=== PATIENT | female | born 2000 | race Caucasian/White ===

== ENCOUNTER 2018-09-17 14:48 | Emergency (ER) | payer BC, OTHER ==
[2018-09-17] MEDS ORDERED: IPRATROPIUM-ALBUTEROL 3 ML NEB INHALATION STA (15:27)
[2018-09-17 15:52] VITALS: RESP 20
[2018-09-17 16:44] LABS: Amorphous Sediment,Urine Rare /hpf; Appearance,Urine Clear (Clear); Bilirubin,Urine Negative (Negative); Blood,Urine Negative (Negative); Color,Urine Light Yellow; Glucose,Urine (UA) Negative (Negative); Ketones,Urine Negative (Negative); Leukocyte Esterase,Urine Small (Negative); Mucus,Urine Rare /hpf; Nitrite,Urine Negative (Negative); Protein,Urine Negative (Negative); RBC,Urine 1 /hpf (0-5); Squamous Epithelial Cell,Urine 6 /hpf (0-4); Urobilinogen,Urine <2.0 mg/dL (<2.0)
--- NOTE | 2018-09-17 16:52 | ED ---
General Adult HPI - General Chief complaint: Upper Respiratory Infection Stated complaint: Sob-111/2 wks Time Seen by Provider: 09/17/18 15:06 Source: patient, RN notes reviewed, old records reviewed Mode of arrival: ambulatory Limitations: no limitations - History of Present Illness Initial comments: 18-year-old female patient 11 weeks 2 days gestation dated by ultrasound and LMP. With a past medical history of asthma presents to ED with 3 days of asthma exacerbation. Pt reports that she has had a dry nonproductive cough and while coughing has some shortness of breath that resolves with albuterol. Patient states that this feels similar to asthma she has had in the past. Patient denies any chest pain. Since that she is not short of breath at baseline, only when coughing. Patient states that at time she has coughed and made herself gag, heart rate denies any nausea at baseline. Patient denies any abdominal pain or vaginal bleeding. Patient denies other complaints. Systemic: Pt denies fatigue, myalgia, fever/chills, rash. Pt denies weakness, night sweats, weight loss. Neuro: Pt denies headache, visual disturbances, syncope or pre-syncope. HEENT: Pt denies ocular discharge or irritation, otalgia, rhinorrhea, pharyngitis or notable lymphadenopathy. Cardiopulmonary: Pt denies chest pain, heart palpitations, dyspnea on exertion. Abdominal/GI: Pt denies abdominal pain, n/v/d. : Pt denies dysuria, burning w/ urination, frequency/urgency. Denies new onset urinary or bowel incontinence. MSK: Pt denies myalgia, loss of strength or function in extremities. Neuro: Pt denies new onset weakness, paresthesias. - Related Data Home Medications Medication Instructions Recorded Confirmed Desmopressin [Ddavp] 0.3 mg PO HS 11/17/13 04/17/16 Dextroamphetamine/Amphetamine 20 mg PO QAM 11/17/13 04/17/16 [Adderall Xr] FLUoxetine HCL [PROzac] 20 mg PO DAILY 11/17/13 04/17/16 Previous Rx's Medication Instructions Recorded Albuterol Inhaler [Ventolin Hfa 1 - 2 puff INHALATION Q4-6H PRN #1 09/17/18 Inhaler] inhaler Albuterol Nebulized [Ventolin 2.5 mg INHALATION Q4H PRN 10 Days 09/17/18 Nebulized] nebu Cephalexin [Keflex] 500 mg PO Q12HR 7 Days #14 cap 09/17/18 Allergies Allergy/AdvReac Type Severity Reaction Status Date / Time ragweed Allergy Unknown Uncoded 09/17/18 14:55 Review of Systems ROS Statement: Those systems with pertinent positive or pertinent negative responses have been documented in the HPI. ROS Other: All systems not noted in ROS Statement are negative. Past Medical History Past Medical History: No Reported History Additional Past Medical History / Comment(s): Depression History of Any Multi-Drug Resistant Organisms: None Reported Past Surgical History: Tonsillectomy Past Psychological History: Anxiety, Depression Smoking Status: Former smoker Past Alcohol Use History: None Reported Past Drug Use History: None Reported General Exam - General Exam Comments Initial Comments: Constitutional: NAD, AOX3, Pt has pleasant affect. HEENT: NC/AT, trachea midline, neck supple, no lymphadenopathy. Posterior pharynx non erythematous, without exudates. External ears appear normal, without discharge. Mucous membranes moist. Eyes PERRLA, EOM intact. There is no scleral icterus. No pallor noted. Cardiopulmonary: RRR, no murmurs, rubs or gallops, no JVD noted. Mild wheezing noted in anterior field, resolved with breathing tx. No peripheral edema. Abdominal exam: Abdomen soft and non-distended. Abdomen non-tender to palpation in all 4 quadrants. Bowel sounds active in LLQ. No hepatosplenomegaly. No ecchymosis Neuro: CN II-XII grossly intact. No nuchal rigidity. MSK: No posterior calf tenderness bilaterally, homans sign negative bilaterally. Posterior tibialis and radial pulse +2 bilaterally. Sensation intact in upper and lower extremities. Full active ROM in upper and lower extremities, 5/5 stregnth. Limitations: no limitations Course Vital Signs 09/17/18 09/17/18 09/17/18 14:55 15:35 15:40 Temperature 98.4 F Pulse Rate 86 84 Respiratory 18 20 18 Rate Blood Pressure 129/77 O2 Sat by Pulse 98 Oximetry 09/17/18 09/17/18 09/17/18 15:47 15:51 16:56 Temperature 98.6 F Pulse Rate 86 109 H Respiratory 16 20 20 Rate Blood Pressure 144/88 O2 Sat by Pulse 100 Oximetry Medical Decision Making - Medical Decision Making 18-year-old female patient 11 weeks 2 days gestation dated by ultrasound and LMP. With a past medical history of asthma presents to ED with 3 days of asthma exacerbation. Pt reports that she has had a dry nonproductive cough and while coughing has some shortness of breath that resolves with albuterol. Patient states that this feels similar to asthma she has had in the past. Patient denies any chest pain. Since that she is not short of breath at baseline, only when coughing. Patient states that at time she has coughed and made herself gag, heart rate denies any nausea at baseline. Patient denies any abdominal pain or vaginal bleeding. Patient denies other complaints. Patient is fully vaccinated. Patient vital signs stable, afebrile. Physical exam displayed: Mild wheezing noted in anterior field, resolved with breathing tx. physical exam displayed negative influenza, UA displayed asymptomatic bacteriuria. Shared decision making will not do chest x-ray due to radiation exposure to fetus. Shared decision making pt will decline steroids due to possible risk to fetus. Patient improved with DuoNeb breathing treatment. Patient prescribed albuterol inhaler, nebulizer, nebulizer albuterol solution. Patient prescribed Keflex for asymptomatic bacteriuria. Patient to follow-up with both her MARINE EQUIPMENT SALES ENGINEER and her PCP tomorrow for continued evaluation. Case discussed in depth with Dr. Spencer. - Lab Data Lab Results 09/17/18 09/17/18 Range/Units 15:40 16:35 Urine Color Light Yellow Urine Appearance Clear (Clear) Urine pH 7.0 (5.0-8.0) Ur Specific [place] 1.010 (1.001-1.035) Urine Protein Negative (Negative) Urine Glucose (UA) Negative (Negative) Urine Ketones Negative (Negative) Urine Blood Negative (Negative) Urine Nitrite Negative (Negative) Urine Bilirubin Negative (Negative) Urine Urobilinogen <2.0 (<2.0) mg/dL Ur Leukocyte Esterase Small H (Negative) Urine RBC 1 (0-5) /hpf Urine WBC 4 (0-5) /hpf Ur Squamous Epith Cells 6 H (0-4) /hpf Amorphous Sediment Rare H (None) /hpf Urine Mucus Rare H (None) /hpf Influenza Type A RNA Not Detected (Not Detectd) Influenza Type B (PCR) Not Detected (Not Detectd) Disposition Clinical Impression: Asthma exacerbation, mild Disposition: HOME SELF-CARE Condition: Stable Instructions (If sedation given, give patient instructions): Asthma (ED) Additional Instructions: Patient to adhere to previously discussed treatment plan and will take medication(s) as directed. Patient to follow up with PCP in 1-2 days. Patient to return to ED if symptoms do not improve. Please follow-up with primary care provider tomorrow. Please follow-up with MARINE EQU[employer]MENT SALES ENGINEER tomorrow. Please use albuterol if experiencing asthma symptoms. Prescriptions: Albuterol Inhaler [Ventolin Hfa Inhaler] 1 - 2 puff INHALATION Q4-6H PRN #1 inhaler PRN Reason: Cough Albuterol Nebulized [Ventolin Nebulized] 2.5 mg INHALATION Q4H PRN 10 Days nebu PRN Reason: Cough Cephalexin [Keflex] 500 mg PO Q12HR 7 Days #14 cap Is patient prescribed a controlled substance at d/c from ED?: No Referrals: Travis Bradford MD [Primary Care Provider] - 1-2 days
[2018-09-17 16:58] VITALS: BP 144/88; PULSE 109; TEMP 98.6
== END 2018-09-17 17:00 | disposition home or self-care (01) ==
LOC: EC 14:48
DX: O99.511 Diseases of the respiratory system complicating pregnancy, first trimester (principal); J45.901 Unspecified asthma with (acute) exacerbation; O99.341 Other mental disorders complicating pregnancy, first trimester; F41.9 Anxiety disorder, unspecified; F32.9 Major depressive disorder, single episode, unspecified; Z3A.11 11 weeks gestation of pregnancy; Z79.899 Other long term (current) drug therapy; Z87.891 Personal history of nicotine dependence
CPT/HCPCS: 81001; 87502; 94640; 99285

== ENCOUNTER 2019-04-03 11:15 | Inpatient (IN) | payer BC, OTHER ==
[2019-04-06] MEDS ORDERED: OXYTOCIN 10 UNIT/ML 1 ML VIAL IM PRN (06:26)
[2019-04-06] MEDS ORDERED: TERBUTALINE 1 MG/ML VIAL SQ PRN (06:26)
[2019-04-06] MEDS ORDERED: OXYTOCIN 30 UNITS/500 ML NS 30 UNIT in SALINE 1 500ML.BAG IV SCH (06:26)
[2019-04-06] MEDS ORDERED: LIDOCAINE 0.5% (PF) 5 MG/ML (50 ML SDV) SQ PRN (06:26)
[2019-04-06] MEDS ORDERED: CARBOPROST TROMETHAMINE 250 MCG/ML 1 ML AMP IM PRN (06:26)
[2019-04-06] MEDS ORDERED: METHYLERGONOVINE 0.2 MG/ML 1 ML AMP IM PRN (06:26)
[2019-04-06] MEDS: LACTATED RINGERS 1,000 ML IV SCH ×3 (06:43→23:28)
[2019-04-06 06:47] LABS: Basophils # (A) 0.1 k/uL (0-0.2); Basophils % (A) 1 %; Eosinophils # (A) 0.3 k/uL (0-0.7); Eosinophils % (A) 3 %; HCT 35.2 % (34.0-46.0); HGB 11.7 gm/dL (11.4-16.0); Lymphocytes # (A) 2.8 k/uL (1.0-4.8); Lymphocytes % (A) 23 %; MCH 27.5 pg (25.0-35.0); MCHC 33.1 g/dL (31.0-37.0); Mean Platelet Volume 6.8; Monocytes # (A) 0.6 k/uL (0-1.0); Monocytes % (A) 5 %; Neutrophils # (A) 8.3 k/uL (1.3-7.7); Neutrophils % (A) 67 %; Platelet Count 297 k/uL (150-450); RBC 4.25 m/uL (3.80-5.40); RDW 14.3 % (11.5-15.5); WBC 12.4 k/uL (4.0-11.0)
[2019-04-06 08:01] VITALS: BMI 32.9
[2019-04-06] MEDS ORDERED: BUTORPHANOL 1 MG/ML 1 ML VIAL IV PRN (09:30)
[2019-04-06] MEDS ORDERED: SODIUM CHLORIDE 0.9% 100 ML BAG ONE (10:43)
[2019-04-06] MEDS ORDERED: ROPIVACAINE 5MG/ML 20ML VIAL ONE (10:43)
[2019-04-06] MEDS ORDERED: fentaNYL (PF) 50 MCG/ML 5 ML AMP ONE (10:43)
[2019-04-06] MEDS ORDERED: ZOLPIDEM 5 MG TAB PO PRN (17:18)
[2019-04-06] MEDS ORDERED: WITCH HAZEL 1 EACH MED..PAD TOPICAL PRN (17:18)
[2019-04-06] MEDS ORDERED: diphenhydrAMINE 50 MG CAP PO PRN (17:18)
[2019-04-06] MEDS ORDERED: SIMETHICONE 80 MG CHEWABLE PO PRN (17:18)
[2019-04-06] MEDS ORDERED: LANOLIN CREAM 5 GM TUBE TOPICAL PRN (17:18)
[2019-04-06] MEDS ORDERED: BENZOCAINE/MENTHOL SPRAY 1 GM/SPRAY AEROSOL TOPICAL PRN (17:18)
[2019-04-06] MEDS ORDERED: diphenhydrAMINE 50 MG/ML 1 ML VIAL IVP PRN ×2 (17:18)
[2019-04-06] MEDS ORDERED: diphenhydrAMINE 25 MG CAP PO PRN (17:18)
[2019-04-06] MEDS ORDERED: Rhogam IMMUNE GLOBULIN 1,500 UNIT/1 ML IM ONE (17:18)
[2019-04-06] MEDS ORDERED: HYDROCORTISONE 2.5% RECTAL CREAM 30 GM TUBE RECTAL PRN (17:18)
[2019-04-06] MEDS ORDERED: OXYTOCIN 20 UNITS/1000 ML NS 1,000 ML IV SCH (17:30)
--- NOTE | 2019-04-06 17:43 | P.HPOB ---
History of Present Illness H&P Date: 04/06/19 Chief Complaint: Induction of labor 18-year-old presents at 40 weeks and 3 days for induction of labor. Her cervix is 1 cm dilated, 80% effaced, and -1 station. She is pretty irregularly. heart tones are 130 with moderate variability and reactive. Review of Systems All systems: negative Constitutional: Denies chills, Denies fever Eyes: denies blurred vision, denies pain Ears, nose, mouth and throat: Denies headache, Denies sore throat Cardiovascular: Denies chest pain, Denies shortness of breath Respiratory: Denies cough Gastrointestinal: Denies abdominal pain, Denies diarrhea, Denies nausea, Denies vomiting Genitourinary: Denies dysuria, Denies hematuria Musculoskeletal: Denies myalgias Integumentary: Denies pruritus, Denies rash Neurological: Denies numbness, Denies weakness Psychiatric: Denies anxiety, Denies depression Endocrine: Denies fatigue, Denies weight change Past Medical History Past Medical History: No Reported History Additional Past Medical History / Comment(s): Obstetric history: This is her first and she's had care with me since the first trimester. Her blood type is A-, antibodies negative, rubella immune, hepatitis B-, GBS negative, HIV negative, RPR nonreactive. History of Any Multi-Drug Resistant Organisms: None Reported Past Surgical History: Tonsillectomy Past Psychological History: Anxiety, Bipolar, Depression Smoking Status: Former smoker Past Alcohol Use History: None Reported Past Drug Use History: None Reported - Past Family History Mother Family Medical History: No Reported History Medications and Allergies Home Medications Medication Instructions Recorded Confirmed Type Pnv,Calcium 72/Iron/Folic Acid 1 tab PO DAILY 04/06/19 04/06/19 History [ Plus Tablet] Allergies Allergy/AdvReac Type Severity Reaction Status Date / Time ragweed Allergy Unknown Uncoded 09/17/18 14:55 Exam Osteopathic Statement: *. No significant issues noted on an osteopathic structural exam other than those noted in the History and Physical/Consult. Vital Signs Temp Pulse Resp BP 04/06/19 07:43 97.7 F 82 16 124/79 Intake and Output 04/06/19 04/06/19 04/06/19 06:59 14:59 22:59 Other: # Voids 300 Weight 87.09 kg Heart: Regular rate and rhythm Lungs: Clear to auscultation bilaterally Abdomen: Soft, nontender Extremities: Negative Homans sign Results Result Diagrams: 04/06/19 06:40 Abnormal Lab Results - Last 24 Hours (Table) 04/06/19 Range/Units 06:40 WBC 12.4 H (4.0-11.0) k/uL Neutrophils # 8.3 H (1.3-7.7) k/uL Assessment and Plan (1) Normal labor Current Visit: Yes Status: Acute Code(s): O80 - ENCOUNTER FOR FULL-TERM UNCOMPLICATED DELIVERY; Z37.9 - OUTCOME OF DELIVERY, UNSPECIFIED SNOMED Code(s): 88686562 Plan: 1. Induction of labor with amniotomy and Pitocin 2. Anticipate normal vaginal delivery
--- NOTE | 2019-04-06 17:45 | P.PROBDLV ---
Vaginal Delivery Note - . Vaginal Delivery Note: 18-year-old presents at 40 weeks and 3 days for induction of labor. Her cervix is 1 cm dilated, 80% effaced, and -1 station. She is pretty irregularly. heart tones are 130 with moderate variability and reactive. Pitocin was started. Amniotomy was performed at 7:48 AM and clear fluid noted. When she was uncomfortable and making cervical change she did get an epidural and was comfortable with this. Her cervix was completely dilated 1629. She p ushed, delivered a viable male infant over intact perineum under epidural anesthesia at 1656. Head delivered OA, anterior shoulder delivered gentle downward guidance for by posterior shoulder and rest of body. Nose and mouth bulb suctioned, cord clamped and cut after delayed cord clamping for about 2 minutes as requested by the mother. was then placed on mother's abdomen. Apgars 9, 9, weight 6 lbs. 14 oz. Placenta delivered spontaneously, intact with three-vessel cord at 1658. Vagina, cervix, and perineum were inspected. No lacerations noted. Estimated blood loss 200 mL. Mother and baby in stable condition.
[2019-04-06] MEDS ORDERED: DIPH,PERTUS(ACELL)TETVAC-LF 0.5 ML VIAL IM ONE (21:12)
[2019-04-06] MEDS: SENNOSIDES-DOCUSATE SODIUM 1 EACH TAB PO SCH (21:13)
[2019-04-07] MEDS: IBUPROFEN 600 MG TAB PO PRN ×3 (01:21→16:08)
[2019-04-07 07:04] LABS: Basophils # (A) 0.1 k/uL (0-0.2); Basophils % (A) 0 %; Eosinophils # (A) 0.2 k/uL (0-0.7); Eosinophils % (A) 1 %; HCT 32.3 % (34.0-46.0); HGB 11.3 gm/dL (11.4-16.0); Lymphocytes # (A) 3.5 k/uL (1.0-4.8); Lymphocytes % (A) 22 %; MCH 29.4 pg (25.0-35.0); MCHC 34.9 g/dL (31.0-37.0); MCV 84.1 fL (80.0-100.0); Monocytes # (A) 0.7 k/uL (0-1.0); Monocytes % (A) 4 %; Neutrophils # (A) 11.3 k/uL (1.3-7.7); Neutrophils % (A) 71 %; Platelet Count 277 k/uL (150-450); RBC 3.84 m/uL (3.80-5.40); RDW 14.6 % (11.5-15.5)
[2019-04-07] MEDS: SENNOSIDES-DOCUSATE SODIUM 1 EACH TAB PO SCH ×2 (08:03→19:42)
--- NOTE | 2019-04-07 09:00 | P.PNOBGVD ---
Subjective - Subjective Principal diagnosis: Status post total vaginal delivery day #1 Interval history: Patient seen and examined. Denies nausea, vomiting, chest pain, shortness of breath or calf pain. Patient reports: Reports appetite normal, Reports voiding normally, Reports pain well controlled, Reports ambulating normally Kermit: doing well Objective - Latest Vital Signs Latest vital signs: Vital Signs Temp Pulse Resp BP Pulse Ox 04/07/19 08:00 97.7 F 80 16 112/65 04/07/19 04:00 98.3 F 87 14 100/57 99 04/07/19 00:00 98.4 F 102 H 16 129/69 97 04/06/19 19:20 97.3 F L 78 16 123/66 04/06/19 18:50 80 16 135/72 04/06/19 18:11 91 16 125/75 04/06/19 17:56 80 16 134/78 04/06/19 17:42 83 16 142/63 04/06/19 17:25 97.9 F 82 16 129/80 04/06/19 17:17 87 16 132/86 Intake and Output 04/06/19 04/07/19 04/07/19 22:59 06:59 14:59 Other: # Voids 300 2 1 - Exam Lungs: bilateral: normal Chest: Normal S1, Normal S2 Extremities: Present: normal Abdomen: Present: normal appearance, soft Uterus: Present: normal, firm - Labs Labs: Abnormal Lab Results - Last 24 Hours (Table) 04/07/19 Range/Units 06:34 WBC 16.0 H (4.0-11.0) k/uL Hgb 11.3 L (11.4-16.0) gm/dL Hct 32.3 L (34.0-46.0) % Neutrophils # 11.3 H (1.3-7.7) k/uL Assessment and Plan (1) Normal labor Current Visit: Yes Status: Resolved Code(s): O80 - ENCOUNTER FOR FULL-TERM UNCOMPLICATED DELIVERY; Z37.9 - OUTCOME OF DELIVERY, UNSPECIFIED SNOMED Code(s): 08621297 (2) Status post normal vaginal delivery Current Visit: Yes Status: Acute Code(s): TLT1919 - SNOMED Code(s): 700462735 Plan: 1. Continue care with possible discharge later today.
[2019-04-07] MEDS: ACETAMINOPHEN TAB 325 MG TAB PO PRN (19:42)
[2019-04-08] MEDS: IBUPROFEN 600 MG TAB PO PRN ×2 (04:23→14:15)
[2019-04-08] MEDS: SENNOSIDES-DOCUSATE SODIUM 1 EACH TAB PO SCH (09:01)
[2019-04-08] MEDS: ACETAMINOPHEN TAB 325 MG TAB PO PRN (09:01)
--- NOTE | 2019-04-08 09:11 | P.DS ---
Providers Date of admission: 04/06/19 06:05 Expected date of discharge: 04/08/19 Attending physician: Jocelyn Corbin Primary care physician: Stated None - Discharge Diagnosis(es) (1) Normal labor Current Visit: Yes Status: Resolved (2) Status post normal vaginal delivery Current Visit: Yes Status: Acute Hospital Course: Patient presented for induction of labor. She underwent a normal vaginal delivery. Her course was uncomplicated. Her pain is controlled with Motrin. Her bleeding has decreased. We spoke about the dangers of depression. She does not want to go on medication at this time as she is breast-feeding. She says she feels pretty good and if she starts to have any signs of depression will contact her counselor. She denies nausea, vomiting, chest pain, shortness of breath or calf pain. She'll be discharged home day #2 in stable condition to follow-up with me in 6 weeks. Plan - Discharge Summary New Discharge Prescriptions: New Ibuprofen [Motrin] 600 mg PO Q6HR PRN #30 tab PRN Reason: Mild Pain Or Fever >= 100.5 No Action Pnv,Calcium 72/Iron/Folic Acid [ Plus Tablet] 1 tab PO DAILY Discharge Medication List Pnv,Calcium 72/Iron/Folic Acid [ Plus Tablet] 1 tab PO DAILY 04/06/19 [History] Ibuprofen [Motrin] 600 mg PO Q6HR PRN #30 tab 04/07/19 [Rx] Follow up Appointment(s)/Referral(s): Jocelyn Corbin DO [Doctor of Osteopathic Medicine] - 6 Weeks Discharge Disposition: HOME SELF-CARE
[2019-04-08 10:04] VITALS: BP 139/74; PULSE 82; RESP 20; TEMP 97.6
== END 2019-04-08 14:00 | disposition home or self-care (01) | DRG 807 ==
LOC: 4FBP 04-06 06:05
PROVIDERS: ADMIT Obstetrics & Gynecology; ATTEND Obstetrics & Gynecology
PROC: 10E0XZZ Delivery of Products of Conception, External Approach (ICD-10-PCS; principal; 2019-04-06)
PROC: 00HU33Z Insertion of Infusion Device into Spinal Canal, Percutaneous Approach (ICD-10-PCS; 2019-04-06)
PROC: 3E0R3BZ Introduction of Anesthetic Agent into Spinal Canal, Percutaneous Approach (ICD-10-PCS; 2019-04-06)
PROC: 3E033VJ Introduction of Other Hormone into Peripheral Vein, Percutaneous Approach (ICD-10-PCS; 2019-04-06)
PROC: 10907ZC Drainage of Amniotic Fluid, Therapeutic from Products of Conception, Via Natural or Artificial Opening (ICD-10-PCS; 2019-04-06)
DX: O80 Encounter for full-term uncomplicated delivery (principal); Z37.0 Single live birth; Z3A.40 40 weeks gestation of pregnancy; Z79.899 Other long term (current) drug therapy; Z87.891 Personal history of nicotine dependence; Z86.59 Personal history of other mental and behavioral disorders; Z91.09 Other allergy status, other than to drugs and biological substances
CPT/HCPCS: 85025; 86850; 86870; 86880; 86900; 86901; 90715

== ENCOUNTER → 2019-08-23 | Outpatient (CLI) | payer OTHER ==
--- NOTE | 2019-08-23 09:43 | US ---
EXAMINATION TYPE: US thyroid st tissue head/neck DATE OF EXAM: 08/23/2019 COMPARISON: NONE CLINICAL HISTORY: E07.9 Disorder of thyroid, unspecified. GLAND SIZE: Right Lobe: 4.5 x 1.7 x 1.7 cm Overall Parenchyma: homogenous Left Lobe: 4.5 x 1.1 x 1.4 cm Overall Parenchyma: homogeneous Isthmus Thickness: 0.3 cm NODULES RIGHT: # of nodules measured on right: 0 LEFT: # of nodules measured on left: 0 ISTHMUS: # of nodules measured in the isthmus: 0 Bilateral neck scanned, no evidence of lymphadenopathy. Right palpable scanned, probable lymph node measuring 0.7 x 0.4 x 0.7cm near the right submandibular gland. IMPRESSION: 1. Thyroid gland is homogeneous without discrete nodule. 2. The palpable abnormality near the right submandibular gland appears as a nonenlarged lymph node. I f there is clinical interval growth repeat ultrasound could be performed to reassess measurements.
== END | disposition home or self-care (01) ==
LOC: RADUSWWP 09:10
PROVIDERS: ATTEND Family Medicine
DX: E07.89 Other specified disorders of thyroid (principal)
CPT/HCPCS: 76536

== ENCOUNTER 2020-05-19 15:36 | Emergency (ER) | payer OTHER ==
[2020-05-19 15:54] VITALS: TEMP 99.4
--- NOTE | 2020-05-19 16:11 | ED ---
General Adult HPI - General Chief complaint: Abdominal Pain Stated complaint: 19wks preg - cramping, bleeding Time Seen by Provider: 05/19/20 16:01 Source: patient Mode of arrival: ambulatory Limitations: no limitations - History of Present Illness Initial comments: Dictation was produced using [employer] dictation software. please excuse any grammatical, word or spelling errors. This patient was cared for during a federal and state declared state of emergency secondary to Covid 19 Chief Complaint: 19-year-old female presents with vaginal bleeding History of Present Illness: 19-year-old female she presents today with vaginal bleeding. Patient is 19 weeks . Her MOLD MAKER APPRENTICE is out of [place], [place]. Patient states that yesterday she was wiping after urinating. She noticed that there was some bleeding on the toilet paper. She states that she has a history of subchorionic bleeding. Patient denies any recent sexual activity or foreign bodies into the vagina. Patient states there was no bleeding today. This is her second . Patient denies any other symptoms. She has no pelvic pain. The ROS documented in this emergency department record has been reviewed and confirmed by me. Those systems with pertinent positive or negative responses have been documented in the HPI. All other systems are other negative and/or noncontributory. PHYSICAL EXAM: General Impression: Alert and oriented x3, not in acute distress HEENT: Normocephalic atraumatic, extra-ocular movements intact, pupils equal and reactive to light bilaterally, mucous membranes moist. Cardiovascular: Heart regular rate and rhythm Chest: Able to complete full sentences, no retractions, no tachypnea Abdomen: abdomen soft, non-tender, non-distended, no organomegaly Musculoskeletal: Pulses present and equal in all extremities, no peripheral edema Motor: no focal deficits noted Neurological: CN II-XII grossly intact, no focal motor or sensory deficits noted Skin: Intact with no visualized rashes Psych: Normal affect and mood ED course: 17 y old female who is 19 weeks presents with vaginal bleeding. Vital signs upon arrival shows heart rate of 107, rest of vital signs within acceptable limits. OB ultrasound was obtained showing single viable intrauterine corresponding to 18 weeks 6 days. There is indeterminate focus with the placenta could possibly represent venous sales difficult to exclude hemorrhage. heart rate is 151 patient is Rh-. Laboratory evaluation obtained showing no acute processes. Patient given RhoGAM. Patient reevaluated bedside she has no recurrence of bleeding since being in the emergency room. She is in stable medical condition. Patient refuses pelvic exam. She states that she is now follow-up with her MOLD MAKER APPRENTICE this week where she'll have full workup. Ultrasound r esults were discussed with patient. She is counseled on pelvic rest. Patient will be discharged. Return parameters discussed. - Related Data Home Medications Medication Instructions Recorded Confirmed Pnv,Calcium 72/Iron/Folic Acid 1 tab PO DAILY 04/06/19 04/06/19 [ Plus Tablet] Previous Rx's Medication Instructions Recorded Ibuprofen [Motrin] 600 mg PO Q6HR PRN #30 tab 04/07/19 Allergies Allergy/AdvReac Type Severity Reaction Status Date / Time ragweed Allergy Unknown Uncoded 05/19/20 15:53 Review of Systems ROS Statement: Those systems with pertinent positive or pertinent negative responses have been documented in the HPI. ROS Other: All systems not noted in ROS Statement are negative. Past Medical History Past Medical History: No Reported History Additional Past Medical History / Comment(s): Obstetric history: This is her first and she's had care with me since the first trimester. Her blood type is A-, antibodies negative, rubella immune, hepatitis B-, GBS negative, HIV negative, RPR nonreactive. History of Any Multi-Drug Resistant Organisms: None Reported Past Surgical History: Tonsillectomy Past Psychological History: Anxiety, Bipolar, Depression Smoking Status: Never smoker Past Alcohol Use History: None Reported Past Drug Use History: None Reported - Past Family History Mother Family Medical History: No Reported History General Exam Limitations: no limitations Course Vital Signs 05/19/20 15:51 Temperature 99.4 F Pulse Rate 107 H Respiratory 20 Rate Blood Pressure 149/93 O2 Sat by Pulse 98 Oximetry Medical Decision Making - Lab Data Result diagrams: 05/19/20 16:40 05/19/20 16:40 Lab Results 05/19/20 05/19/20 05/19/20 Range/Units 16:40 16:40 16:40 WBC 11.2 H (3.8-10.6) k/uL RBC 4.08 (3.80-5.40) m/uL Hgb 12.1 (11.4-16.0) gm/dL Hct 36.4 (34.0-46.0) % MCV 89.2 (80.0-100.0) fL MCH 29.8 (25.0-35.0) pg MCHC 33.4 (31.0-37.0) g/dL RDW 13.5 (11.5-15.5) % Plt Count 306 (150-450) k/uL Neutrophils % 67 % Lymphocytes % 22 % Monocytes % 2 % Eosinophils % 7 % Basophils % 0 % Neutrophils # 7.5 (1.3-7.7) k/uL Lymphocytes # 2.4 (1.0-4.8) k/uL Monocytes # 0.3 (0-1.0) k/uL Eosinophils # 0.8 H (0-0.7) k/uL Basophils # 0.0 (0-0.2) k/uL PT (9.0-12.0) sec INR (<1.2) APTT (22.0-30.0) sec Sodium 135 L (137-145) mmol/L Potassium 4.0 (3.5-5.1) mmol/L Chloride 109 H (98-107) mmol/L Carbon Dioxide 20 L (22-30) mmol/L Anion Gap 6 mmol/L BUN 9 (7-17) mg/dL Creatinine 0.43 L (0.52-1.04) mg/dL Est GFR (CKD-EPI)AfAm >90 (>60 ml/min/1.73 sqM) Est GFR (CKD-EPI)NonAf >90 (>60 ml/min/1.73 sqM) Glucose 84 (74-99) mg/dL Calcium 9.1 (8.4-10.2) mg/dL Blood Type A Negative Blood Type Recheck A Neg Bld Type Recheck Status No Antibody Screen NEGATIVE Spec Expiration Date 05/22/2020 - 233905/19/20 Range/Units 17:12 WBC (3.8-10.6) k/uL RBC (3.80-5.40) m/uL Hgb (11.4-16.0) gm/dL Hct (34.0-46.0) % MCV (80.0-100.0) fL MCH (25.0-35.0) pg MCHC (31.0-37.0) g/dL RDW (11.5-15.5) % Plt Count (150-450) k/uL Neutrophils % % Lymphocytes % % Monocytes % % Eosinophils % % Basophils % % Neutrophils # (1.3-7.7) k/uL Lymphocytes # (1.0-4.8) k/uL Monocytes # (0-1.0) k/uL Eosinophils # (0-0.7) k/uL Basophils # (0-0.2) k/uL PT 9.3 (9.0-12.0) sec INR 0.9 (<1.2) APTT 21.7 L (22.0-30.0) sec Sodium (137-145) mmol/L Potassium (3.5-5.1) mmol/L Chloride (98-107) mmol/L Carbon Dioxide (22-30) mmol/L Anion Gap mmol/L BUN (7-17) mg/dL Creatinine (0.52-1.04) mg/dL Est GFR (CKD-EPI)AfAm (>60 ml/min/1.73 sqM) Est GFR (CKD-EPI)NonAf (>60 ml/min/1.73 sqM) Glucose (74-99) mg/dL Calcium (8.4-10.2) mg/dL Blood Type Blood Type Recheck Bld Type Recheck Status Antibody Screen Spec Expiration Date Disposition Clinical Impression: Vaginal bleeding during Disposition: HOME SELF-CARE Condition: Fair Instructions (If sedation given, give patient instructions): Threatened Miscarriage (ED) Additional Instructions: Follow-up with your MOLD MAKER APPRENTICE as soon as possible Is patient prescribed a controlled substance at d/c from ED?: No Time of Disposition: 18:05
[2020-05-19 16:53] LABS: Basophils % (A) 0 %; Eosinophils # (A) 0.8 k/uL (0-0.7); Eosinophils % (A) 7 %; HCT 36.4 % (34.0-46.0); HGB 12.1 gm/dL (11.4-16.0); Lymphocytes # (A) 2.4 k/uL (1.0-4.8); Lymphocytes % (A) 22 %; MCH 29.8 pg (25.0-35.0); MCHC 33.4 g/dL (31.0-37.0); MCV 89.2 fL (80.0-100.0); Mean Platelet Volume 6.6; Monocytes # (A) 0.3 k/uL (0-1.0); Monocytes % (A) 2 %; Neutrophils # (A) 7.5 k/uL (1.3-7.7); Neutrophils % (A) 67 %; Platelet Count 306 k/uL (150-450); RBC 4.08 m/uL (3.80-5.40); RDW 13.5 % (11.5-15.5); WBC 11.2 k/uL (3.8-10.6)
[2020-05-19 16:58] LABS: African American GFR (CKD) >90 (>60 ml/min/1.73 sqM); Anion Gap 6 mmol/L; Blood Urea Nitrogen 9 mg/dL (7-17); Calcium 9.1 mg/dL (8.4-10.2); Carbon Dioxide 20 mmol/L (22-30); Chloride 109 mmol/L (98-107); Glucose 84 mg/dL (74-99); Non-African American GFR(CKD) >90 (>60 ml/min/1.73 sqM); Sodium 135 mmol/L (137-145)
--- NOTE | 2020-05-19 17:20 | US ---
EXAMINATION TYPE: US OB >= 14 wk fetus DATE OF EXAM: 05/19/2020 COMPARISON: None CLINICAL HISTORY: vaginal bleeding cramping, light vaginal bleeding with wiping for 1 day TECHNIQUE: Transabdominal (TA) GESTATIONAL AGE / DATING Physician Established: (19 weeks/1 days) EDC: 10/12/20 Dates by LMP: LMP unknown Dates by First Scan: No previous this is first scan Dates by Current Scan: (18 weeks/6 days) EDC: 10/14/20 SURVEY IUP: Single PLACENTA: Anterior - heterogeneous with hypoechoic area = 4.2 x 4.3cm PREVIA: No Previa [place]: 10.7 cm Normal CERVICAL LENGTH (transabdominal: norm > 3.0cm): 3.2 cm BIOMETRY PRESENTATION: Vertex LIE: Transverse with head maternal LT BPD: 4.3 cm 19 weeks / 0 days HC: 16.4 cm 19 weeks / 1 days AC: 13.2 cm 18 weeks / 5 days FL: 2.9 cm 19 weeks / 0 days ESTIMATED WEIGHT IN GRAMS: 261.4 grams ESTIMATED WEIGHT IN LBS/OZ: 0 lbs. 9 oz. WEIGHT PERCENTAGE BASED ON ESTABLISHED DATES: 29.7% HC/AC: 1.24 Normal FL/AC: 17.68 Normal HEART RATE: 151 bpm RHYTHM: Normal Heterogeneous placenta with hypoechoic area = 4.2 x 4.3cm IMPRESSION: Single viable intrauterine corresponding to ultrasound age 18 weeks 6 days with estimated d ate of delivery 10/14/2020. Indeterminate focus within the placenta could possibly represent venous la ke, difficult to exclude hemorrhage
[2020-05-19 17:43] LABS: INR 0.9 (<1.2); Prothrombin Time 9.3 sec (9.0-12.0)
[2020-05-19] MEDS ORDERED: Rhogam IMMUNE GLOBULIN 1,500 UNIT/1 ML IM ONE (17:59)
[2020-05-19 18:00] LABS: Partial Thromboplastin Time 21.7 sec (22.0-30.0)
[2020-05-19 18:51] VITALS: BP 127/80; PULSE 61; RESP 16
== END 2020-05-19 18:50 | disposition home or self-care (01) ==
LOC: EC 15:36
DX: O46.92 Antepartum hemorrhage, unspecified, second trimester (principal); Z3A.18 18 weeks gestation of pregnancy; Z29.14 Encounter for prophylactic rabies immune globulin; Z91.048 Other nonmedicinal substance allergy status
CPT/HCPCS: 36415; 86900; 86901; 80048; 85025; 85610; 85730; 86850; 76805; 99284; J2791